=== PATIENT | male | born 1970 | race Caucasian/White ===

== ENCOUNTER 2017-05-25 08:01 | Inpatient (IN) | payer BC ==
[~2017-05-25] VITALS: Ht 180.3 cm; Wt 80.4 kg
[2017-05-25 08:59] LABS: Basophils # (auto) 0 uL; Basophils % (auto) 0.6 % (0.0-2.0); Eosinophils # (auto) 0 uL; Eosinophils % (auto) 0.2 % (0.0-7.0); Hematocrit 47.5 % (41.0-53.0); Hemoglobin 16.1 g/dL (13.5-17.5); Lymphocytes # (auto) 0.7 uL; Lymphocytes % (auto) 12.4 % (10.0-50.0); Mean Corpuscular Hemoglobin 31.2 pg (28.0-32.0); Mean Corpuscular Volume 91.9 fL (80.0-100.0); Mean Platelet Volume 6.4 fL (6.9-10.8); Monocytes # (auto) 0.3 uL; Monocytes % (auto) 5.1 % (0.0-12.0); Neutrophils # (auto) 4.6 uL; Neutrophils % (auto) 81.7 % (37.0-80.0); Nucleated Red Blood Cells % 0.1 %; Platelet Count (auto) 166 10^3/uL (140-450); Red Cell Distribution Width 14.1 % (11.8-14.3); White Blood Cell 5.7 10^3/uL (4.4-10.8)
[2017-05-25 09:17] LABS: Albumin 3.7 g/dL (3.4-5.0); BUN/Creatinine Ratio 18.8; Calcium 7.6 mg/dL (8.5-10.1); Potassium 3.9 mmol/L (3.5-5.1)
[2017-05-25 09:21] LABS: Bilirubin, Total 0.8 mg/dL (0.2-1.0); Total Protein 7.3 g/dL (6.4-8.2)
[2017-05-25 10:27] LABS: Urine Bilirubin Negative (Negative); Urine Blood 2+ /uL (Negative); Urine Color Yellow (Yellow); Urine Glucose Normal (Normal); Urine Hyaline Cast FEW /lpf (0 - 2); Urine Ketone 2+ (Negative); Urine Nitrite Negative (Negative); Urine RBC 2 /hpf (0 - 3); Urine Squamous Epithelial Cell FEW /hpf (<5); Urine Urobilinogen Normal (Negative)
[2017-05-25] MEDS ORDERED: SODIUM CHLORIDE 0.9% 1,000 ML IV ONE ×2 (10:45→17:30)
[2017-05-25] MEDS ORDERED: SODIUM CHLORIDE 0.9% 1,000 ML IVB ONE (11:26)
[2017-05-25] MEDS ORDERED: LORazepam 2MG/ML-1ML VIAL IV ONE ×2 (11:30→16:00)
[2017-05-25] MEDS ORDERED: THIAMINE INJ 100 MG, MULTIPLE VITAMIN 10 ML, FOLIC ACID 1 MG, MAGNESIUM SULF SDV 50% 8 ... IV SCH ×5 (12:00)
[2017-05-25] MEDS ORDERED: NITROGLYCERIN 0.4 MG SL TAB SL PRN (17:30)
[2017-05-25] MEDS ORDERED: MORPHINE SULF INJ 2 MG/ML SYRINGE 1ML IV PRN (17:30)
[2017-05-25] MEDS ORDERED: chlordiazePOXIDE HCL 25 MG CAP PO SCH (18:00)
[2017-05-25] MEDS: LORazepam 2MG/ML-1ML VIAL IV PRN ×2 (19:20→23:18)
[2017-05-25 20:00] VITALS: BP 152/97
[2017-05-25] MEDS: chlordiazePOXIDE HCL 25 MG CAP PO SCH (21:13)
[2017-05-25 23:56] VITALS: BP 154/66
[2017-05-26] MEDS: chlordiazePOXIDE HCL 25 MG CAP PO SCH ×6 (01:37→21:46)
[2017-05-26] MEDS: LORazepam 2MG/ML-1ML VIAL IV PRN ×4 (03:33→16:11)
[2017-05-26 03:50] VITALS: BP 145/87
[2017-05-26] MEDS ORDERED: THIAMINE HCL 100 MG/ML 2ML VIAL IV SCH (10:00)
[2017-05-26] MEDS: FOLIC ACID 1 MG TAB PO SCH (10:18)
[2017-05-26 11:58] VITALS: BP 152/98
[2017-05-26 13:00] VITALS: BP 157/97
[2017-05-26] MEDS: MULTIPLE VITAMINS W/ MINERALS TAB PO SCH (14:24)
[2017-05-26 17:00] VITALS: BP 152/94
[2017-05-26 22:17] VITALS: BP 154/99
[2017-05-27] MEDS: chlordiazePOXIDE HCL 25 MG CAP PO SCH ×3 (04:21→12:12)
[2017-05-27 04:33] VITALS: BP 156/88
[2017-05-27] MEDS: LORazepam 2MG/ML-1ML VIAL IV PRN ×3 (05:42→13:38)
[2017-05-27 07:59] LABS: Basophils # (auto) 0 uL; Basophils % (auto) 0.7 % (0.0-2.0); Eosinophils # (auto) 0.2 uL; Eosinophils % (auto) 2.6 % (0.0-7.0); Hematocrit 41.7 % (41.0-53.0); Hemoglobin 14.7 g/dL (13.5-17.5); Lymphocytes # (auto) 0.7 uL; Lymphocytes % (auto) 11.5 % (10.0-50.0); Mean Corpuscular Hemoglobin 31.8 pg (28.0-32.0); Mean Corpuscular Hgb Conc. 35.3 g/dL (32.0-36.0); Mean Platelet Volume 7.2 fL (6.9-10.8); Monocytes # (auto) 0.6 uL; Monocytes % (auto) 9.5 % (0.0-12.0); Neutrophils # (auto) 4.5 uL; Neutrophils % (auto) 75.7 % (37.0-80.0); Nucleated Red Blood Cells % 0.2 %; Platelet Count (auto) 119 10^3/uL (140-450); Red Cell Distribution Width 13.7 % (11.8-14.3)
[2017-05-27] MEDS: MULTIPLE VITAMINS W/ MINERALS TAB PO SCH (08:13)
[2017-05-27] MEDS: FOLIC ACID 1 MG TAB PO SCH (08:14)
[2017-05-27 08:24] LABS: BUN/Creatinine Ratio 13.5; Calcium 8.8 mg/dL (8.5-10.1); Magnesium 2.1 mg/dL (1.6-2.6); Phosphorus 2.4 mg/dL (2.5-4.90); Potassium 3.4 mmol/L (3.5-5.1)
[2017-05-27 09:00] VITALS: BP 142/82
[2017-05-27] MEDS ORDERED: THIAMINE HCL 100 MG TAB PO SCH (10:00)
[2017-05-27] MEDS ORDERED: MULT-351 PO (11:37)
[2017-05-27] MEDS ORDERED: CHL25C PO (11:37)
[2017-05-27] MEDS ORDERED: THIA100T11 PO (11:37)
[2017-05-27] MEDS ORDERED: FOLI1TAB6 PO (11:37)
[2017-05-27] MEDS ORDERED: LORazepam 2MG/ML-1ML VIAL IV ONE (12:15)
[2017-05-27 12:53] VITALS: BP 131/8
[2017-05-27 13:03] VITALS: BP 131/88
== END 2017-05-27 15:32 | disposition home or self-care (01) | DRG 896 ==
LOC: ER 08:01 → EDBD 08:01 → TELE 08:02 → DOU IN ICU 20:00 → TELE-CENTR 05-26 15:17
PROVIDERS: ADMIT Nurse Practitioner Acute Care; ATTEND Nurse Practitioner Acute Care
DX: F10.231 Alcohol dependence with withdrawal delirium (principal); G92 Toxic encephalopathy; J69.0 Pneumonitis due to inhalation of food and vomit; F32.9 Major depressive disorder, single episode, unspecified; F41.9 Anxiety disorder, unspecified
CPT/HCPCS: 36415; 70450; 71010; 80048; 80053; 80307; 80320; 81001; 82962; 83735; 84100; 84425; 85025; 87081

== ENCOUNTER 2017-11-07 01:12 | Inpatient (IN) | payer BC ==
[~2017-11-07] VITALS: Ht 177.8 cm; Wt 96.6 kg
[~2017-11-07 01:12] MED LIST: CHL25C PO; FOLI1TAB6 PO; MULT-351 PO; THIA100T11 PO
[2017-11-07 02:05] LABS: Basophils # (auto) 0.1 uL; Basophils % (auto) 0.8 % (0.0-2.0); Eosinophils # (auto) 0 uL; Eosinophils % (auto) 0.3 % (0.0-7.0); Hematocrit 44.5 % (41.0-53.0); Hemoglobin 14.9 g/dL (13.5-17.5); Lymphocytes # (auto) 0.8 uL; Lymphocytes % (auto) 11.9 % (10.0-50.0); Mean Corpuscular Hemoglobin 30.8 pg (28.0-32.0); Mean Corpuscular Hgb Conc. 33.6 g/dL (32.0-36.0); Mean Corpuscular Volume 91.7 fL (80.0-100.0); Monocytes # (auto) 0.4 uL; Monocytes % (auto) 5.2 % (0.0-12.0); Neutrophils # (auto) 5.7 uL; Neutrophils % (auto) 81.8 % (37.0-80.0); Platelet Count (auto) 232 10^3/uL (140-450); Red Blood Cells 4.85 10^6/uL (4.5-5.90); Red Cell Distribution Width 14.6 % (11.8-14.3)
[2017-11-07 02:23] LABS: Albumin 4.2 g/dL (3.4-5.0); BUN/Creatinine Ratio 12.7; Calcium 8.1 mg/dL (8.5-10.1); Magnesium 2.4 mg/dL (1.6-2.6); Potassium 3.9 mmol/L (3.5-5.1)
[2017-11-07 02:27] LABS: Acetaminophen < 2.0 ug/mL (10-30); Salicylate < 1.7 mg/dL (2.8-20.0)
[2017-11-07 02:36] LABS: Bilirubin, Total 0.5 mg/dL (0.2-1.0); Total Protein 7.9 g/dL (6.4-8.2)
[2017-11-07] MEDS ORDERED: MVI in SODIUM CHLORIDE 0.9% 1,010 ML IV ONE (03:14)
[2017-11-07] MEDS ORDERED: SODIUM CHLORIDE 0.9% 1,000 ML IVB ONE (03:14)
[2017-11-07] MEDS ORDERED: THIAMINE 100mg/ml INJ (200mg/2ml VIAL) IV ONE ×2 (03:15→13:30)
[2017-11-07] MEDS: MAGNESIUM SULFATE 1GM/100ML 100 ML IV SCH ×2 (03:15→04:15)
[2017-11-07] MEDS ORDERED: LORazepam 2MG/ML-1ML VIAL IV ONE ×3 (04:00→10:45)
[2017-11-07 04:22] LABS: Urine WBC None Seen /hpf (0 - 3)
[2017-11-07 04:34] LABS: Urine Bacteria NONE SEEN /hpf (None Seen); Urine Blood 2+ /uL (Negative); Urine Hyaline Cast FEW /lpf (0 - 2); Urine Mucus FEW (None Seen); Urine Specific Gravity 1.014 (1.001-1.035)
[2017-11-07 04:51] LABS: Amphetamine Screen, Urine NEGATIVE (NEGATIVE); Barbiturate Scree,Urine NEGATIVE (NEGATIVE); Benzodiazephine Screen, Urine NEGATIVE (NEGATIVE); Cannabinoid Screen, Urine NEGATIVE (NEGATIVE); Cocaine Screen, Urine NEGATIVE (NEGATIVE); Opiate Scree,Urine NEGATIVE (NEGATIVE); Phencyclidine Screen, Urine NEGATIVE (NEGATIVE)
[2017-11-07] MEDS ORDERED: chlordiazePOXIDE HCL 25 MG CAP PO ONE ×2 (07:00→13:45)
[2017-11-07] MEDS ORDERED: SODIUM CHLORIDE 0.9% 1,000 ML IV ONE ×2 (08:25)
[2017-11-07] MEDS ORDERED: HALOPERIDOL LACTATE 5 MG/ML INJ VIAL ONE (08:37)
[2017-11-07] MEDS ORDERED: HALOPERIDOL LACTATE 5 MG/ML INJ VIAL IM ONE ×2 (08:45→10:30)
[2017-11-07] MEDS ORDERED: diphenhdrAMINE HCL 50 MG/1 ML VL ONE (08:58)
[2017-11-07] MEDS ORDERED: diphenhdrAMINE HCL 50 MG/1 ML VL IV ONE (10:30)
[2017-11-07] MEDS ORDERED: GABAPENTIN 300 MG CAP PO ONE (11:30)
[2017-11-07] MEDS ORDERED: chlordiazePOXIDE HCL 5 MG CAP PO ONE (13:15)
[2017-11-07] MEDS ORDERED: SODIUM CHLORIDE 0.9% 1,000 ML IV SCH (13:20)
[2017-11-07] MEDS ORDERED: NITROGLYCERIN 0.4 MG SL TAB SL PRN (13:30)
[2017-11-07] MEDS ORDERED: MORPHINE SULFATE 4 MG/ML SYR/VIAL IV PRN ×2 (13:30)
[2017-11-07] MEDS ORDERED: LACTULOSE 20Gm/30ML SOLN PO PRN (13:30)
[2017-11-07] MEDS: chlordiazePOXIDE HCL 25 MG CAP PO PRN ×2 (14:30→21:14)
[2017-11-07] MEDS: LORazepam 2MG/ML-1ML VIAL IV PRN ×3 (15:27→20:29)
[2017-11-07] MEDS: SODIUM CHLORIDE 0.9% 1,000 ML IV SCH ×2 (15:27→23:40)
[2017-11-07] MEDS: MORPHINE SULFATE 4 MG/ML SYR/VIAL IV PRN ×2 (15:27→16:10)
[2017-11-07] MEDS: chlordiazePOXIDE HCL 25 MG CAP PO SCH ×2 (17:59→23:42)
[2017-11-07] MEDS: PROMETHAZINE HCL 25 MG/ML 1ML IV PRN (21:14)
[2017-11-08] MEDS: LORazepam 2MG/ML-1ML VIAL IV PRN ×8 (00:38→21:04)
[2017-11-08] MEDS: chlordiazePOXIDE HCL 25 MG CAP PO SCH ×4 (06:10→22:55)
[2017-11-08 07:05] LABS: Potassium 3.8 mmol/L (3.5-5.1)
[2017-11-08 07:07] LABS: Albumin 4.1 g/dL (3.4-5.0); BUN/Creatinine Ratio 13.8; Calcium 8.8 mg/dL (8.5-10.1)
[2017-11-08 07:10] LABS: Bilirubin, Total 1.5 mg/dL (0.2-1.0); Total Protein 7.8 g/dL (6.4-8.2)
[2017-11-08] MEDS: SODIUM CHLORIDE 0.9% 1,000 ML IV SCH ×2 (07:52→16:18)
[2017-11-08 08:02] LABS: Basophils # (auto) 0 uL; Basophils % (auto) 0.4 % (0.0-2.0); Eosinophils # (auto) 0 uL; Eosinophils % (auto) 0.4 % (0.0-7.0); Hematocrit 42.7 % (41.0-53.0); Hemoglobin 14.3 g/dL (13.5-17.5); Lymphocytes # (auto) 0.6 uL; Lymphocytes % (auto) 8.1 % (10.0-50.0); Mean Corpuscular Hemoglobin 30.9 pg (28.0-32.0); Mean Corpuscular Hgb Conc. 33.5 g/dL (32.0-36.0); Mean Corpuscular Volume 92.4 fL (80.0-100.0); Monocytes # (auto) 0.7 uL; Monocytes % (auto) 9.2 % (0.0-12.0); Neutrophils # (auto) 6.4 uL; Neutrophils % (auto) 81.9 % (37.0-80.0); Platelet Count (auto) 163 10^3/uL (140-450); Red Blood Cells 4.62 10^6/uL (4.5-5.90); Red Cell Distribution Width 14.5 % (11.8-14.3); White Blood Cell 7.8 10^3/uL (4.4-10.8)
[2017-11-08] MEDS: PROMETHAZINE HCL 25 MG/ML 1ML IV PRN (08:55)
[2017-11-08] MEDS: THIAMINE 100mg/ml INJ (200mg/2ml VIAL) IV SCH (10:07)
[2017-11-08] MEDS ORDERED: LABETALOL HCL 200 MG TAB PO ONE (11:00)
[2017-11-08] MEDS ORDERED: FOLIC ACID 1 MG TAB PO ONE (11:15)
[2017-11-08] MEDS ORDERED: chlordiazePOXIDE HCL 5 MG CAP PO SCH (12:00)
[2017-11-08 13:59] LABS: Cholesterol 258 mg/dL (< 200); HDL Cholesterol 115 mg/dL (40-59); LDL Cholesterol 129 mg/dL (< 100); Triglycerides 87 mg/dL (< 150)
[2017-11-08] MEDS ORDERED: MORPHINE SULFATE 8mg/ml INJ SDV IV PRN ×2 (16:30)
[2017-11-08] MEDS: LABETALOL HCL 200 MG TAB PO SCH (22:55)
[2017-11-09] MEDS: SODIUM CHLORIDE 0.9% 1,000 ML IV SCH ×3 (00:30→17:19)
[2017-11-09] MEDS: LORazepam 2MG/ML-1ML VIAL IV PRN ×2 (01:42→04:06)
[2017-11-09] MEDS: chlordiazePOXIDE HCL 25 MG CAP PO SCH ×4 (06:06→22:13)
[2017-11-09] MEDS: THIAMINE 100mg/ml INJ (200mg/2ml VIAL) IV SCH (10:14)
[2017-11-09] MEDS: LABETALOL HCL 200 MG TAB PO SCH ×2 (10:15→22:13)
[2017-11-09] MEDS: FOLIC ACID 1 MG TAB PO SCH (10:15)
[2017-11-09 15:10] LABS: Albumin 3.3 g/dL (3.4-5.0); BUN/Creatinine Ratio 21.1; Calcium 8.6 mg/dL (8.5-10.1); INR 0.97 (0.9-1.15); Potassium 3.6 mmol/L (3.5-5.1); Prothrombin Time 10.4 sec (9.27-12.13)
[2017-11-09 15:13] LABS: Total Protein 6.8 g/dL (6.4-8.2)
[2017-11-09 15:24] LABS: Basophils # (auto) 0 uL; Basophils % (auto) 0.2 % (0.0-2.0); Eosinophils # (auto) 0.1 uL; Eosinophils % (auto) 1.7 % (0.0-7.0); Hematocrit 38.3 % (41.0-53.0); Hemoglobin 13.1 g/dL (13.5-17.5); Lymphocytes # (auto) 0.6 uL; Lymphocytes % (auto) 6.8 % (10.0-50.0); Mean Corpuscular Hemoglobin 31.3 pg (28.0-32.0); Mean Corpuscular Hgb Conc. 34.1 g/dL (32.0-36.0); Mean Corpuscular Volume 91.9 fL (80.0-100.0); Monocytes # (auto) 0.5 uL; Monocytes % (auto) 6.2 % (0.0-12.0); Neutrophils # (auto) 7.2 uL; Neutrophils % (auto) 85.1 % (37.0-80.0); Platelet Count (auto) 144 10^3/uL (140-450); Red Blood Cells 4.17 10^6/uL (4.5-5.90); Red Cell Distribution Width 14.3 % (11.8-14.3); White Blood Cell 8.5 10^3/uL (4.4-10.8)
[2017-11-10] MEDS: SODIUM CHLORIDE 0.9% 1,000 ML IV SCH ×3 (01:59→17:20)
[2017-11-10] MEDS ORDERED: ACETAMINOPHEN 325 MG TAB PO ONE (02:15)
[2017-11-10] MEDS: chlordiazePOXIDE HCL 25 MG CAP PO SCH ×4 (06:00→23:11)
[2017-11-10] MEDS: chlordiazePOXIDE HCL 25 MG CAP PO PRN (06:38)
[2017-11-10 07:45] LABS: Albumin 3.1 g/dL (3.4-5.0); BUN/Creatinine Ratio 19.7; Calcium 8.1 mg/dL (8.5-10.1); Potassium 3.6 mmol/L (3.5-5.1)
[2017-11-10 07:58] LABS: Bilirubin, Total 0.8 mg/dL (0.2-1.0); Total Protein 6.2 g/dL (6.4-8.2)
[2017-11-10] MEDS: THIAMINE 100mg/ml INJ (200mg/2ml VIAL) IV SCH (10:01)
[2017-11-10] MEDS: FOLIC ACID 1 MG TAB PO SCH (10:02)
[2017-11-10] MEDS: LABETALOL HCL 200 MG TAB PO SCH ×2 (10:02→23:13)
[2017-11-10 22:40] VITALS: BP 132/75
[2017-11-10 22:45] VITALS: BP 132/75
[2017-11-11 05:00] VITALS: BP 133/82
[2017-11-11] MEDS: chlordiazePOXIDE HCL 25 MG CAP PO SCH (05:40)
[2017-11-11] MEDS ORDERED: CYA100I PO (07:52)
[2017-11-11] MEDS ORDERED: MULTCAP45 PO (07:53)
[2017-11-11 08:00] VITALS: BP 143/83
[2017-11-11 09:00] VITALS: BP 143/83
[2017-11-11] MEDS: LABETALOL HCL 200 MG TAB PO SCH (10:28)
[2017-11-11] MEDS: FOLIC ACID 1 MG TAB PO SCH (10:28)
[2017-11-11] MEDS: THIAMINE 100mg/ml INJ (200mg/2ml VIAL) IV SCH (10:28)
[2017-11-11] MEDS ORDERED: IBUP400T21 PO (11:10)
[2017-11-11] MEDS ORDERED: THIA100T5 PO (11:10)
[2017-11-11] MEDS ORDERED: FOLI1TAB6 PO (11:10)
[2017-11-11] MEDS ORDERED: PANT40TA2 PO (11:10)
[2017-11-11] MEDS ORDERED: LAB200T PO (11:10)
[2017-11-11] MEDS ORDERED: COLCHICINE 0.6 MG TAB PO ONE (11:15)
[2017-11-11 12:07] VITALS: BP 118/80
[2017-11-11 13:09] VITALS: BP 118/80
== END 2017-11-11 13:10 | disposition home or self-care (01) | DRG 948 ==
LOC: EDBD 01:12 → ER 01:12 → TELE 01:13 → TELE-WESTW 11-10 22:19
PROVIDERS: ADMIT Internal Medicine; ATTEND Internal Medicine
DX: R41.82 Altered mental status, unspecified (principal); F10.231 Alcohol dependence with withdrawal delirium; E87.2 Acidosis; I15.8 Other secondary hypertension; K70.9 Alcoholic liver disease, unspecified; F10.229 Alcohol dependence with intoxication, unspecified; M10.9 Gout, unspecified; F41.9 Anxiety disorder, unspecified; Z79.899 Other long term (current) drug therapy; R53.1 Weakness
CPT/HCPCS: 36415; 71045; 80053; 80061; 80307; 80320; 80329; 81001; 82140; 82550; 83735; 85025; 85610; 94761; 96361; 96372; 96374; 96375